=== PATIENT | female | born 1990 | race Asian ===

== ENCOUNTER 2016-08-28 11:11 | Emergency (ER) | payer OTHER ==
[~2016-08-28] VITALS: Ht 167.6 cm; Wt 71.2 kg
[2016-08-28 16:01] VITALS: BP 127/73
== END 2016-08-28 16:01 | disposition home or self-care (01) ==
LOC: ED 11:11
DX: J20.9 Acute bronchitis, unspecified (principal); Z91.018 Allergy to other foods
CPT/HCPCS: J7510; J7613; J7644